=== PATIENT | male | born 1995 | race Two or more races ===

== ENCOUNTER 2024-06-23 02:45 | Emergency (ER) | payer OTHER ==
[~2024-06-23] VITALS: Ht 170.2 cm; Wt 79.5 kg
[2024-06-23 03:48] VITALS: BP 96/50; PULSE 103; RESP 18; O2SAT 96
[2024-06-23] MEDS: IBUPROFEN 600 MG TABLET PO ONE (04:18)
[2024-06-23] MEDS: ACETAMINOPHEN 500 MG TABLET PO ONE (04:19)
[2024-06-23] MEDS ORDERED: PSEU-191 PO (04:40)
[2024-06-23] MEDS ORDERED: ACET-66 PO (04:40)
[2024-06-23] MEDS ORDERED: IBUP-1554 PO (04:40)
[2024-06-23] MEDS ORDERED: GUAIFDM PO (04:40)
== END 2024-06-23 05:04 | disposition home or self-care (01) ==
LOC: EMS 02:45
DX: J20.9 Acute bronchitis, unspecified (principal); J06.9 Acute upper respiratory infection, unspecified
CPT/HCPCS: 71045; 93005; 99284